=== PATIENT | female | born 1960 | race Caucasian/White ===

== ENCOUNTER 2018-08-10 12:00 | Day surgery (SDC) | payer BC ==
[~2018-08-10 12:00] MED LIST: Lactated Ringers 1,000 ML IV SCH
--- NOTE | 2018-08-10 13:32 | PCM.PREANE ---
Preanesthetic Assessment - Anesthesia/Transfusion/Family Hx Anesthesia History: Prior Anesthesia Without Reaction Family History of Anesthesia Reaction: No Transfusion History: No Prior Transfusion(s) Intubation History: Unknown - Review of Systems General: No Symptoms Pulmonary: No Symptoms Cardiovascular: No Symptoms Gastrointestinal: No Symptoms Neurological: No Symptoms Other: Reports: None - Physical Assessment NPO Status Date: 08/09/18 NPO Status Time: 23:00 O2 Sat by Pulse Oximetry: 98 Respiratory Rate: 83 Vital Signs: Last Vital Signs Temp 36.6 C 08/10/18 12:50 Pulse 83 08/10/18 12:50 Resp 83 H 08/10/18 12:50 BP 136/73 08/10/18 12:50 Pulse Ox 98 08/10/18 12:50 Height: 1.57 m Weight: 84.368 kg ASA Class: 2 Mental Status: Alert & Oriented x3 Airway Class: Mallampati = 2 Dentition: Reports: Normal Dentition Thyro-Mental Finger Breadths: 3 Mouth Opening Finger Breadths: 3 ROM/Head Extension: Full Lungs: Clear to Auscultation, Normal Respiratory Effort Cardiovascular: Regular Rate, Regular Rhythm - Allergies Allergies/Adverse Reactions: Allergies Allergy/AdvReac Type Severity Reaction Status Date / Time ciprofloxacin [From Cipro] Allergy Hives Verified 08/04/18 16:51 - Blood Blood Available: No - Anesthesia Plan Pre-Op Medication Ordered: None - Acknowledgements Anesthesia Type Planned: MAC Pt an Appropriate Candidate for the Planned Anesthesia: Yes Alternatives and Risks of Anesthesia Discussed w Pt/Guardian: Yes Pt/Guardian Understands and Agrees with Anesthesia Plan: Yes PreAnesthesia Questionnaire HEENT History: Reports: None Cardiovascular History: Reports: Other (See Below) Other Cardiovascular History: high BP in the past Respiratory History: Reports: None Gastrointestinal History: Reports: GERD Other Gastrointestinal History: dysphagia Genitourinary History: Reports: None Musculoskeletal History: Reports: None Neurological History: Reports: None Psychiatric History: Reports: None Endocrine/Metabolic History: Reports: Hypothyroidism, Obesity/BMI 30+ Hematologic History: Reports: None Immunologic History: Reports: None Oncologic (Cancer) History: Reports: None Dermatologic History: Reports: None - Past Surgical History Head Surgeries/Procedures: Reports: None HEENT Surgical History: Reports: None Cardiovascular Surgical History: Reports: None Respiratory Surgical History: Reports: None GI Surgical History: Reports: EGD (3-4 EGD's with esophageal dilatation- last one about 8 years ago) Other GI Surgeries/Procedures: EGD with dilation x4 Female Surgical History: Reports: Hysterectomy Endocrine Surgical History: Reports: None Neurological Surgical History: Reports: None Musculoskeletal Surgical History: Reports: None Oncologic Surgical History: Reports: None Dermatological Surgical History: Reports: None - SUBSTANCE USE Smoking Status *Q: Never Smoker Recreational Drug Use History: No - HOME MEDS Home Medications: Home Meds Ibuprofen 800 mg PO ASDIRECTED PRN 08/04/18 [History] Levothyroxine Sodium [Levoxyl] 50 mcg PO DAILY 08/04/18 [History] - CURRENT (IN HOUSE) MEDS Current Meds: Current Medications Lactated Ringer's (Ringers, Lactated) 1,000 mls @ 125 mls/hr IV ASDIRECTED EVE Last Admin: 08/10/18 13:13 Dose: 125 mls/hr
[2018-08-10] MEDS ORDERED: Midazolam 1 MG/ML 2 ML SDV ONE (15:22)
[2018-08-10] MEDS ORDERED: fentaNYL 100 MCG/2 ML SDV ONE (15:23)
[2018-08-10] MEDS ORDERED: Lidocaine 2% 5 ML SDV ONE (15:23)
[2018-08-10] MEDS ORDERED: Propofol 200 MG/20 ML SDV ONE (15:24)
[2018-08-10] MEDS ORDERED: Lactated Ringers 1,000 ML IV SCH (16:30)
--- NOTE | 2018-08-10 16:31 | PCM.OPNOTE ---
- General Post-Op/Procedure Note Date of Surgery/Procedure: 08/10/18 Operative Procedure(s): EGD w/ gastric biopsy, gastric polypectomy and esophageal dilatation to 54 Fr. Pre Op Diagnosis: Progressive dysphagia Post-Op Diagnosis: Moderate gastritis. Gastric polyp. Esophageal stricture Anesthesia Technique: MAC (ASA II) Primary Surgeon: Edwin Torre Condition: Good Free Text/Narrative:: DICTATION 419146 CPT CODE 04990
--- NOTE | 2018-08-10 16:59 | PCM48HPAN ---
Post Anesthesia Note - EVALUATION WITHIN 48HRS OF ANESTHETIC Vital Signs in Normal Range: Yes Patient Participated in Evaluation: Yes Respiratory Function Stable: Yes Airway Patent: Yes Cardiovascular Function Stable: Yes Hydration Status Stable: Yes Pain Control Satisfactory: Yes Nausea and Vomiting Control Satisfactory: Yes Mental Status Recovered: Yes Resp Rate: 13 - COMMENTS/OBSERVATIONS Free Text/Narrative:: no anesthesia problems
--- NOTE | 2018-08-11 08:13 | OR ---
SURGEON: Edwin Torre M.D. DATE OF PROCEDURE: 08/10/2018 OPERATION PERFORMED: Esophagogastroduodenoscopy with gastric biopsies, gastric polypectomy, and balloon dilatation of distal esophageal stricture to 54-[place]an. PRIMARY SURGEON: Edwin Torre M.D. ANESTHESIA: MAC. ASA CLASSIFICATION: II. PREOPERATIVE DIAGNOSES: 1. Progressive dysphagia. 2. Longstanding gastroesophageal reflux disease. POSTOPERATIVE DIAGNOSES: 1. Distal esophageal stricture. 2. [id number] gastritis. 3. Gastric polyp. DESCRIPTION OF PROCEDURE: The patient was taken to the endoscopy room and positioned on the endoscopy table in a supine position. Time-out was called for appropriate identification of patient and procedure. Monitored anesthesia care was provided. A bite block was placed between the patient's teeth. The gastroscope was inserted through the bite block and advanced with minimal difficulty to the distal esophagus. I was able to traverse the area of stricture without any difficulty with the scope suggesting it was at least a 34-[place]an. The scope was then advanced through the stomach into the duodenum, and examination began in a retrograde fashion. The duodenum shows no acute inflammatory changes or ulcerations. The stomach does show [id number] gastritis. Antral biopsies were obtained to look for the presence of Helicobacter pylori. The gastroscope was retroflexed to visualize the proximal stomach. One small polyp was noted proximally. The scope was then straightened and slowly withdrawn to the area of the polyp, which was removed with the cold biopsy forceps. The gastroscope was then withdrawn through the GE junction, positioning it just above the distal esophagus and the esophageal hiatus. A balloon dilator was inserted through the gastroscope and inflated over time to dilate the distal esophagus to 54-[place]. The balloon was then deflated and the gastroscope advanced. There was a little bit of bleeding present, but the esophageal mucosa still appeared intact. Again, there was no resistance to passage of the scope. The scope was then slowly withdrawn, carefully visualizing the remainder of the esophagus which demonstrates healthy- appearing mucosa. No other strictures were identified. No tumors were identified. The vocal cords were briefly visualized as the scope was withdrawn and noted to move symmetrically. The gastroscope was then removed with the patient having tolerated the procedure well. She was then taken to recovery room in satisfactory condition. WILLIAN / NICHOLAS /[id number]
== END 2018-08-10 17:00 | disposition home or self-care (01) ==
LOC: MW.SDS 12:00
PROVIDERS: ATTEND Surgery
DX: K22.2 Esophageal obstruction (principal); K29.50 Unspecified chronic gastritis without bleeding; K31.7 Polyp of stomach and duodenum; K21.9 Gastro-esophageal reflux disease without esophagitis; E66.9 Obesity, unspecified; Z68.34 Body mass index [BMI] 34.0-34.9, adult; E03.9 Hypothyroidism, unspecified; Z79.899 Other long term (current) drug therapy; Z79.890 Hormone replacement therapy
CPT/HCPCS: 43239; 43249; 88305; 88312; C1726; J2001; J2250; J2704; J3010; J7120